=== PATIENT | male | born 1970 | race Two or more races ===

== ENCOUNTER 2023-09-01 16:44 | Emergency (ER) | payer OTHER, SELFPAY ==
[2023-09-01 17:00] VITALS: BP 170/98
[2023-09-01 17:27] LABS: % Basophils 0.3 % (0-2); % Eosinophils 1.7 % (0-6); % Immature Granulocytes 0.6 % (0-0.5); % Neutrophils 74.4 % (42.2-75.2); Absolute Eosinophils 0.2 10^3/uL (0-0.7); Absolute Immature Granulocytes 0.1 10^3/uL (0-0.05); Absolute Lymphocytes 1.6 10^3/uL (1.2-3.4); Absolute Monocytes 0.6 10^3/uL (0.1-0.6); Absolute Neutrophils 6.9 10^3/uL (1.4-6.5); Hematocrit 40.2 % (39.0-52.0); Hemoglobin 14.1 g/dL (13.0-18.0); Mean Corp Hgb Conc. 35.1 g/dL (33.0-37.0); Mean Corpuscular Hgb 29.1 pg (27.0-31.0); Mean Corpuscular Volume 82.9 fL (80.0-94.0); Mean Platelet Volume 9.8 fL (7.4-10.4); Nucleated Red Blood Cells % 0 % (-); Platelet Count 273 10^3/uL (130-400); Red Blood Cell Count 4.85 10^6/uL (4.70-6.10); Red Cell Dist. Width 13.3 % (11.5-14.5); White Blood Cell Count 9.3 10^3/uL (4.8-10.8)
[2023-09-01 17:38] LABS: ALT (SGPT) 39 U/L (0-50); AST (SGOT) 30 U/L (17-59); Alkaline Phosphatase 106 U/L (38-126); Blood Urea Nitrogen 22 mg/dl (9-20); Calcium 9.3 mg/dl (8.4-10.2); Carbon Dioxide 28 mmol/L (22-30); Chloride 105 mmol/L (98-107); Glucose 125 mg/dl (70-99); Potassium 4.9 mmol/L (3.5-5.1); Sodium 137 mmol/L (135-145); Total Bilirubin 0.8 mg/dl (0.2-1.3); Total Protein 6.8 g/dl (6.3-8.2); eGFR > 60.00
[2023-09-01 17:43] LABS: COVID-19 Antigen Negative (Negative)
[2023-09-01 17:50] LABS: Troponin I < 0.012 ng/ml
[2023-09-01 18:22] VITALS: BMI 33.1
--- NOTE | 2023-09-01 18:56 | ED.GENMED ---
History of Present Illness
General
Chief Complaint: Heart Rate Problem
Source: patient and spouse
Exam Limitations: none
Time Seen by Provider: 09/01/23 18:55
Travel History
Have you had any contact with someone who has COVID-19?: No
Do you have any symptoms of coronavirus? Fever > 100 degrees, chills, cough, shortness of breath, sore throat, loss of taste or smell, muscle aches, or headache?: Yes
Symptoms:: chils overnight
History of Present Illness
History of Present Illness:
53-year-old male with ongoing right ankle pain and issues after trauma work-related over a year ago. However up to a few weeks ago despite chronic pain he is normally able to ambulate. The last week or so he has had pain to the point of inability
to ambulate. Also concerned with some color changes at times to the ankle. Also add some intermittent chest pain and tingling to the left arm over the last few days. Also concerned with elevated blood pressure. May have had some fever a few days
ago and had some diaphoresis after Tylenol but no further episodes of fever or chills diaphoresis etc. No current chest pain or shortness of breath
Past History
Past History
ED Past Medical History: None
ED Past Surgical History: None
Patient has exhibited threatening behavior?: No
Review of Systems
Review of Systems
All Other Systems: Not applicable
Respiratory: Denies cough or hemoptysis
Cardiac: Denies palpitations or syncope
Phy Exam
Physical Exam
Physical Exam:
GENERAL: Alert and oriented in no apparent distress
EYE: Orbits normal.
NECK: Supple, no thyroid palpable
ENT: Pharynx without erythema
CARDIAC: Regular rate and rhythm without any obvious murmurs.
LUNGS: Clear breath sounds,normal
ABDOMEN: Soft, without focal tenderness or distention
NEUROLOGICAL: Alert and oriented , grossly non-focal
SKIN: Warm and dry, no erythema. No unusual discoloration.
MUSCULOSKELETAL: Tenderness to the right ankle medial laterally and across the Achilles posteriorly. Slight swelling to the lower leg. No warmth or erythema. Some pain with joint motion. No warmth to the joint. No rash. Patient has a picture
showing his ankle in the morning where you could visualize a vein along the medial ankle. Not visualized currently.
PSYCH: Normal and appropriate interaction.
Course
Orders/Labs/Results
Orders:
Orders
09/01/23 17:00
ECG [Electrocardiogram (*1)] Urgent
Reason for Study: Palpitations
EKG- Treatment ONCE
09/01/23 17:11
C-Reactive Protein Urgent
Comment: ADD ON
COVID-19 Antigen Urgent
Source: Nasal Swab
Complete Blood Count/With Diff Urgent
Comprehensive Metabolic Panel Urgent
Erythrocyte Sed Rate Urgent
Comment: ADD ON
Troponin I Urgent
Influenza A+B Rapid Molecular Urgent
RACIEL Source: Nasal Swab
Specimen Description:
09/01/23 19:15
Add On- LAB Urgent
Tests Added?: esr,crp
09/01/23 19:16
Acetaminophen 1000MG/100Ml [Ofirmev] 1,000 mg in 100 ml IV ONCE
Acetaminophen IV Indication:: ED Narcotic Naive Pt-ONCE
Ketorolac [Toradol] 15 mg IV NOW STA
US Periph Venous LOWER Ext RT Urgent
Comment:
Reason For Exam: severe right ankle pain/ leg swelling
09/01/23 20:25
D-Dimer Urgent
09/01/23 21:35
Pedro Wrap Right-Treatment ONCE
Hydrocodone 5/APAP 325 [[place] 5/325] 1 tablet PO NOW STA
Abnormal Lab Results
09/01/23
17:11
Abs Immat Gran (auto) 0.1 H 10^3/uL
(0-0.05)
Absolute Neuts (auto) 6.9 H 10^3/uL
(1.4-6.5)
Immature Gran % 0.6 H %
(0-0.5)
Lymphocytes % 17.0 L %
(20.5-51.1)
ESR 30 H mm/hour
(0-20)
BUN 22 H mg/dl
(9-20)
Glucose 125 H mg/dl
(70-99)
C-Reactive Protein 27.10 H mg/L
(0.0-10.00)
09/01/23 17:11
09/01/23 17:11
Vital Signs
Initial and Last Documented VS:
Initial Vital Signs
Temp Pulse Resp BP Pulse Ox
97.7 F 82 16 170/98 100
09/01/23 17:00 09/01/23 17:00 09/01/23 17:00 09/01/23 17:00 09/01/23 17:00
Last Documented Vital Signs
Temp Pulse Resp BP Pulse Ox
97.7 F 64 16 168/103 98
09/01/23 17:00 09/01/23 20:30 09/01/23 17:00 09/01/23 20:30 09/01/23 20:30
MDM/Problems Addressed
Differential Diagnosis Includes:
Patient with intermittent nonexertional chest pain in the last few days. Currently without chest pain. No cardiac risk factors. EKG and troponin are normal. D-dimer pending. Leg ultrasound negative. Nothing to support pulmonary emboli. As for
the ankle there is some mild swelling. Previous MRI report from August 16 showed acute and chronic ligamentous injury to the right ankle along with some calcific tendinitis of the Achilles. Also a osteochondral lesion of the ankle joint.
Moderate joint effusion at that time. Doubt septic arthritis. White count is normal no fever no current infectious symptoms. Mild elevation in inflammatory markers.
*Pulse Oximetry
Patient hypoxic: no
*EKG
Interpreted by ED Provider?: Yes
Interpretation: normal
Comparison EKG: no comparison EKG present
Heart Rate: 72
Rate: normal
Rhythm: sinus
Sentinel: left axis deviation
Interval: normal interval
QRS Pattern: normal QRS
Ischemia: no ischemia
*Critical Care Note
Total Time (30-74mins, 75-104mins- exclusive of procedures): Not Applicable
Update Note
Update Note:
Patient appears well and is nontoxic at this time. Chest pain was atypical nonexertional currently resolved no risk factors for cardiac occurred earlier today. No indication for repeat cardiac testing. For completeness he will be plugged into the
cardiac follow-up.
As for the ankle, no DVT no circulatory issue. Highly doubt septic arthritis with no fever no chills no current infectious symptoms. Normal white count. Mild inflammatory marker elevations but not high marker elevations. No unusual warmth or
erythema to the joint. No risk factors for septic arthritis. He has had the symptoms for 2 to 3 weeks. this was all discussed with the patient and family. Discussed with orthopedics will follow-up this week.
ED Attending Note
-
Portions of this chart may have been created with voice recognition software.� Occasional wrong word or��sound alike� substitutions may have occurred due to the inherent limitations of voice recognition software.
Discharge Plan
Departure
Patient Disposition: Home (Routine Discharge)
Date of Disposition: 09/01/23
Time of Disposition: 21:33
Patient with high blood pressure during this ER visit?: Yes
Discharge Problem:
Chest pain/resolved, Right ankle pain/joint effusion, Chronic trauma
Instructions: Chest Pain DCA Follow Up, BLOOD PRESSURE
Prescriptions:
New
hydrocodone-acetaminophen 5-300 mg tablet
1 tab PO Q4H PRN (Reason: Pain) Qty: 14 0RF
No Action
meloxicam 7.5 mg Tablet
7.5 mg PO DAILY
Referrals:
Sonia Reagan MD [Family Provider] -
Luis Mills MD [Active] -
Activity Restrictions/Additional Instructions:
The cardiology group should call you Monday morning for close follow-up early this week
Call the orthopedist listed first thing Monday. His partner Paul Watson is the ankle and labor relations specialist who is in their office this week. Let them know we talked to this orthopedist and he would like you seen this week by the ankle foot
specialist
As discussed if there are any progression of symptoms in the ankle including increased pain increased swelling redness fever please return immediately to the ER for reevaluation
The narcotic pain medication has been sent to your pharmacy. Do not take this with Tylenol as there is Tylenol in it.
Interventions
Interventions:
*Risk Screen - Suicide Last Done: 09/01/23 18:22
*General Assessment Last Done: 09/01/23 18:22
*Neglect/Abuse Screening Last Done: 09/01/23 18:22
ED- Fall Risk Assessment Last Done: 09/01/23 18:22
*ED COVID-19 Vaccine History Last Done: 09/01/23 18:22
*Nursing Disposition Last Done: 09/01/23 22:10
ED- Cardiac Assessment Last Done: 09/01/23 18:22
ED- Pulmonary Assessment Last Done: 09/01/23 18:22
Discharge Date and Time
Discharge Date/Time: 09/01/23 22:11
[2023-09-01 19:55] LABS: Erythrocyte Sed Rate 30 mm/hour (0-20)
[2023-09-01 20:19] VITALS: BP 163/93
[2023-09-01] MEDS: OFIRMEV 100 IV (20:29)
[2023-09-01] MEDS: TORADOL 15 MG IV (20:29)
[2023-09-01 20:30] VITALS: BP 168/103
[2023-09-01 21:14] LABS: D-Dimer 0.38 ug/mlFEU (0.00-0.50)
[2023-09-01] MEDS: NORCO 5/325 1 TABLET PO (21:49)
== END 2023-09-01 22:11 | disposition home or self-care (01) ==
LOC: EMR 16:44
PROVIDERS: Emergency Medicine; EMERGENCY PHYSICIAN Emergency Medicine; FAMILY PHYSICIAN Internal Medicine
DX: M25.571 Pain in right ankle and joints of right foot (principal); G89.29 Other chronic pain; R03.0 Elevated blood-pressure reading, without diagnosis of hypertension; Z11.52 Encounter for screening for COVID-19
CPT/HCPCS: 99285; 96374; 96375; 80053; 84484; 85025; 85379; 85652; 86140; 87502; 87811; 93005; 93971